=== PATIENT | male | born 1955 | race Caucasian/White ===

== ENCOUNTER 2018-06-19 09:02 | Emergency (ER) | payer BC ==
[~2018-06-19] VITALS: Ht 177.8 cm; Wt 122.3 kg
[2018-06-19 09:06] VITALS: BP 164/101
[2018-06-19] MEDS ORDERED: MAGN296S50 PO (10:01)
== END 2018-06-19 10:25 | disposition home or self-care (01) ==
LOC: ER 09:02
DX: K59.00 Constipation, unspecified (principal)
CPT/HCPCS: 74018; 99283

== ENCOUNTER 2019-07-04 08:55 | Observation (INO) | payer MEDICARE ==
[~2019-07-04] VITALS: Ht 180.3 cm; Wt 90.0 kg
[~2019-07-04 08:55] MED LIST: MAGN296S50 PO
[2019-07-04 09:44] LABS: BASOPHILS # (AUTO) 0.1 X10'3 (0-0.2); BASOPHILS % (AUTO) 0.9 % (0-1); EOSINOPHILS # (AUTO) 0.1 X10'3 (0-0.9); EOSINOPHILS % (AUTO) 1.7 % (0-6); HEMATOCRIT 47.1 % (42.0-52.0); HEMOGLOBIN 16.3 g/dl (14.0-17.9); LYMPHOCYTES # (AUTO) 1.9 X10'3 (1.1-4.8); LYMPHOCYTES % (AUTO) 25.8 % (21-51); MEAN CORPUSCULAR HEMOGLOBIN 32.8 PG (27.0-31.0); MEAN CORPUSCULAR HGB CONC 34.5 g/dL (33.0-36.5); MEAN PLATELET VOLUME 8.6 FL (7.4-10.4); MONOCYTES # (AUTO) 0.8 X10'3 (0-0.9); MONOCYTES % (AUTO) 10.5 % (2-12); NEUTROPHILS # (AUTO) 4.4 X10'3 (1.8-7.7); NEUTROPHILS % (AUTO) 61.1 % (42-75); PLATELET COUNT 140 X10'3 (140-440); RED BLOOD COUNT 4.96 X10'6 (4.70-6.10); RED CELL DISTRIBUTION WIDTH 13.2 % (11.5-14.5); WHITE BLOOD COUNT 7.2 X10'3 (4.5-11.0)
[2019-07-04 09:54] LABS: ALANINE AMINOTRANSFERASE 53 U/L (12-78); ALBUMIN 4.1 G/DL (3.4-5.0); ALBUMIN/GLOBULIN RATIO 1.1 (1.1-1.5); ALKALINE PHOSPHATASE 53 IU/L (46-116); ANION GAP 8 (8-16); ASPARTATE AMINO TRANSFERASE 33 U/L (10-37); BILIRUBIN,TOTAL 0.7 MG/DL (0.1-1.0); BLOOD UREA NITROGEN 28 MG/DL (7-18); BUN/CREATININE RATIO 20.4 (5.4-32.0); CALCIUM 9.5 MG/DL (8.5-10.1); CHLORIDE 105 MMOL/L (99-107); CREATININE 1.37 MG/DL (0.60-1.10); GLUCOSE 106 MG/DL (70-104); SODIUM 140 MMOL/L (135-145); TOTAL CARBON DIOXIDE 26.8 MMOL/L (24-32); TOTAL PROTEIN 7.8 G/DL (6.4-8.2); eGFR 52 ML/MIN
[2019-07-04] MEDS ORDERED: nitroGLYCERIN 0.4mg/hour patch TD ONE (09:55)
[2019-07-04] MEDS ORDERED: aspirin 81mg tab.chew PO ONE (09:55)
[2019-07-04] MEDS ORDERED: normal saline 1000ML IV soln IVB ONE (09:55)
[2019-07-04] MEDS ORDERED: LISI-600 PO (10:37)
[2019-07-04] MEDS ORDERED: ASPI-529 PO (10:38)
[2019-07-04] MEDS ORDERED: METO-411 PO (10:38)
[2019-07-04] MEDS ORDERED: iohexol 350MG/ML 100ml bottle IV ONE (10:38)
[2019-07-04] MEDS ORDERED: OMEP40CA13 PO (10:39)
[2019-07-04] MEDS ORDERED: SENN-93 PO (10:40)
[2019-07-04] MEDS ORDERED: MULT-1074 PO (10:41)
--- NOTE | 2019-07-04 11:10 | NUR ---
PT TO CT VIA WHEELCHAIR.
[2019-07-04] MEDS ORDERED: potassium CL 10mEq/100ml bag 100 ML IV PRN ×2 (11:55)
[2019-07-04] MEDS ORDERED: potassium Cl 20 mEq SR tablet PO PRN ×2 (11:55)
[2019-07-04] MEDS ORDERED: morphine 2 MG/ML inj. syringe IV PRN (11:55)
[2019-07-04] MEDS ORDERED: magnesium 4gm in 100ml NS 100 ML IV PRN (11:55)
[2019-07-04] MEDS ORDERED: magnesium Cl slow-release 64mg tablet PO PRN (11:55)
[2019-07-04] MEDS ORDERED: magnesium 2GM in 50ml NS 50 ML IV PRN (11:55)
[2019-07-04] MEDS ORDERED: ondansetron/PF 4mg/2ml inj IV PRN (11:55)
[2019-07-04] MEDS ORDERED: regadenoson 0.4mg/5ml syringe IV ONE (16:45)
[2019-07-04] MEDS ORDERED: aminophylline 250mg/10ml inj. IV PRN (16:45)
[2019-07-04] MEDS ORDERED: metoprolol tartrate 1mg/ml inj IV PRN (16:45)
[2019-07-04] MEDS ORDERED: nitroGLYCERIN 0.4mg SUBLingual tab SL PRN (16:45)
[2019-07-04] MEDS ORDERED: regadenoson 0.4mg/5ml syringe IV PRN (16:55)
[2019-07-04] MEDS: lisinopril 20mg tablet PO SCH (17:20)
[2019-07-04 17:31] VITALS: BP 139/39
--- NOTE | 2019-07-04 18:23 | NUR ---
Problems reprioritized. Patient report given, questions answered & plan of care reviewed with ZACK GO.
[2019-07-04 19:00] VITALS: BP 116/69
[2019-07-04] MEDS: acetaminophen 325mg tablet PO PRN (19:02)
[2019-07-04] MEDS: K and/or MAG REPLACEMENT MC SCH (20:00)
[2019-07-04] MEDS: sennosides/docusate sodium tablet PO SCH (20:05)
[2019-07-04 22:00] VITALS: BP 98/66
[2019-07-05] VITALS (14 sets, daily range): BP systolic 107–180; BP diastolic 65–106
[2019-07-05] MEDS: acetaminophen 325mg tablet PO PRN (01:07)
--- NOTE | 2019-07-05 06:10 | NUR ---
Patient in room ORTHO 4014. I have received report from DONAVAN Garcia and had the opportunity to ask questions and assume patient care.
[2019-07-05 07:13] LABS: ALBUMIN 3.7 G/DL (3.4-5.0); ANION GAP 8 (8-16); BLOOD UREA NITROGEN 21 MG/DL (7-18); BUN/CREATININE RATIO 16.3 (5.4-32.0); CALCIUM 8.9 MG/DL (8.5-10.1); CHLORIDE 105 MMOL/L (99-107); CREATININE 1.29 MG/DL (0.60-1.10); GLUCOSE 99 MG/DL (70-104); POTASSIUM 3.8 MMOL/L (3.5-5.1); SODIUM 139 MMOL/L (135-145); eGFR 56 ML/MIN
[2019-07-05 07:18] LABS: BASOPHILS % (AUTO) 0.3 % (0-1); EOSINOPHILS # (AUTO) 0.1 X10'3 (0-0.9); EOSINOPHILS % (AUTO) 1.4 % (0-6); HEMATOCRIT 42.6 % (42.0-52.0); HEMOGLOBIN 14.9 g/dl (14.0-17.9); LYMPHOCYTES # (AUTO) 2.2 X10'3 (1.1-4.8); LYMPHOCYTES % (AUTO) 23.5 % (21-51); MEAN CORPUSCULAR HEMOGLOBIN 32.7 PG (27.0-31.0); MEAN CORPUSCULAR HGB CONC 34.9 g/dL (33.0-36.5); MEAN CORPUSCULAR VOLUME 93.6 FL (78-98); MEAN PLATELET VOLUME 8.7 FL (7.4-10.4); MONOCYTES # (AUTO) 0.9 X10'3 (0-0.9); MONOCYTES % (AUTO) 10.1 % (2-12); NEUTROPHILS % (AUTO) 64.7 % (42-75); PLATELET COUNT 120 X10'3 (140-440); RED BLOOD COUNT 4.55 X10'6 (4.70-6.10); RED CELL DISTRIBUTION WIDTH 13.3 % (11.5-14.5); WHITE BLOOD COUNT 9.2 X10'3 (4.5-11.0)
[2019-07-05] MEDS ORDERED: pantoprazole 40mg Tablet.DR PO SCH (07:30)
[2019-07-05] MEDS ORDERED: multivitamins, therapeutics tablet PO SCH (08:00)
[2019-07-05] MEDS ORDERED: aspirin 81mg tablet.DR PO SCH (08:00)
[2019-07-05] MEDS ORDERED: metoprolol succinate 25mg (24-HOUR) SR. Tablet PO SCH (08:00)
--- NOTE | 2019-07-05 10:45 | NUR ---
Patient arrived back to the floor from Nuclear Medicine after his stress test. Patient is in stable condition. Will continue to monitor patient for duration of shift
[2019-07-05] MEDS: sennosides/docusate sodium tablet PO SCH (11:22)
[2019-07-05] MEDS: lisinopril 20mg tablet PO SCH (11:23)
[2019-07-05] MEDS: K and/or MAG REPLACEMENT MC SCH (11:25)
--- NOTE | 2019-07-05 12:55 | NUR ---
PAGER ID: [phone] MESSAGE: Dr. Abel, pt [facility]/Neuro [id number], Lexiscan results back. Please advise. 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
--- NOTE | 2019-07-05 14:18 | NUR ---
Patient discharged. All instructions given to patient and reviewed. Answered patients questions until patient had no more. Patient left in a stable condition with all personal belongings and walked out with aide. PIV d/c, intact and patient tolerated well.
== END 2019-07-05 14:15 | disposition home or self-care (01) ==
LOC: ER 08:56 → ED HOLD 12:18 → ORTHO 4S 14:00
PROVIDERS: ADMIT Internal Medicine; ATTEND Internal Medicine
DX: R07.89 Other chest pain (principal); I20.8 Other forms of angina pectoris; I12.9 Hypertensive chronic kidney disease with stage 1 through stage 4 chronic kidney disease, or unspecified chronic kidney disease; N18.9 Chronic kidney disease, unspecified; N17.9 Acute kidney failure, unspecified; K21.9 Gastro-esophageal reflux disease without esophagitis; Z87.891 Personal history of nicotine dependence; Z79.899 Other long term (current) drug therapy
CPT/HCPCS: 36415; 71045; 71275; 78452; 80048; 80053; 83735; 84484; 85025; 87081; 93005; 93017; 93306; 96374; 99284; A9500; G0378; J0280; J2785; Q9967